=== PATIENT | female | born 1985 | race Caucasian/White ===

== ENCOUNTER 2016-12-27 06:40 | Inpatient (IN) | payer OTHER ==
[2016-12-27 08:03] VITALS: BMI 35.0
[2016-12-27 08:19] LABS: BASOPHIL 0.6 % (0-2.0); EOSINOPHIL 1.2 % (0-4.5); MCHC 33.5 g/dl (32.0-36.0); MEAN CELL VOLUME 92.4 fl (80-96); MEAN PLT VOLUME 9.2 fl (7.5-11.1); NEUTROPHILS 72.5 % (42.8-82.8); PLATELET COUNT 166 K/MM3 (134-434); RDW 14.6 % (11.6-15.6); WHITE BLOOD COUNT 11.3 K/mm3 (4.0-10.0)
[2016-12-27 08:31] LABS: INR 1.04 (0.82-1.09); PROTHROMBIN TIME (PATIENT) 11.4 SEC (9.98-11.88)
[2016-12-27 08:33] LABS: ACTIVATED PTT 26.8 SECONDS (26.9-34.4)
[2016-12-27 08:47] LABS: CALCIUM 8.7 mg/dL (8.5-10.1); COCKROFT - GAULT 323.8585; CREATININE 0.4 mg/dL (0.55-1.02)
[2016-12-27] MEDS ORDERED: PROMETHAZINE HCL 25 MG/1 ML VIAL IVPUSH PRN (09:45)
[2016-12-27] MEDS ORDERED: BUTORPHANOL TARTRATE 1 MG/ML VIAL IVPB PRN (09:45)
[2016-12-27] MEDS ORDERED: DEXTROSE 5%-LACTATED RINGERS 1,000 ML IV SCH (09:45)
[2016-12-27] MEDS ORDERED: SODIUM PHOSPHATE/NA BIPHOS 133 ML ENEMA PR ONE (09:48)
[2016-12-27] MEDS ORDERED: DINOPROSTONE 10 MG VAGINAL SUPPOSITORY VG ONE (10:00)
--- NOTE | 2016-12-27 10:32 | HP ---
Past Medical History - Primary Care Physician PCP:: Mela Woody - Admission Chief Complaint: 31 yrs , 40.5/7 weeks by sono , 41 wks by dates admitted for induction of labor History of Present Illness: pnc at [address] [place] [address] . Wt gain 44lbs work up : O neg, ( Rhogam taken AP on 10/02/16) , Hbsag neg, Rpr nr, , Rubella pos, Quantiferon neg, Hiv neg, Gbs neg pngt 139 serial sono done by [facility] for growth Genetic counselling was done. NT screen neg, Modified sequential screen neg Last sono done on 12/23/16 40.1 weeks, angel 11.7cm, efw 7'10" History Source: Patient, Medical Record Limitations to Obtaining History: No Limitations - Past Medical History ACCESS DIRECTOR: No: Seizure Cardiovascular: No: HTN Pulmonary: No: Asthma Gastrointestinal: No: Gastritis Renal/: No: UTI Reproductive: Yes: Other (pap 05/08/16 NILM) ...: 7 ...Para: 2 (2 01/30/05 9'9", baby 9'2",at [facility] h/o Induction of labor for postdates both times ) ...Term: 2 ...: 0 ...Spon : 4 (last ab 2013 ) ...Induced : 0 ...Multiple Gestation: 0 ...LMP: 03/15/16 ... Weeks Gestation by Dates: 41.0 ...EDC by Dates: 12/20/16 ...EDC by Sono: 12/22/16 (40.5/7) Infectious Disease: No: AIDS, HIV, STD's, Tuberculosis Psych: Yes: Panic (meds stopped 1 year ago) Endocrine: No: Diabetes Mellitus, Hypothyroidism - Past Surgical History Past Surgical History: Yes: None Hx Myomectomy: No Hx Transabdominal Cerclage: No - Smoking History Smoking history: Former smoker Have you smoked in the past 12 months: No - Alcohol/Substance Use Hx Alcohol Use: No History of Substance Use: reports: None Home Medications - Allergies Allergies/Adverse Reactions: Allergies Allergy/AdvReac Type Severity Reaction Status Date / Time No Known Allergies Allergy Verified 12/27/16 07:39 - Home Medications Home Medications: Ambulatory Orders Vit/Iron Fumarate/FA [ Tablet] 1 each PO DAILY 12/27/16 Physical Exam - Maternity Vital Signs: Vital Signs Temperature 97.7 F 12/27/16 10:00 Pulse Rate 78 12/27/16 10:00 Respiratory Rate 20 12/27/16 10:00 Blood Pressure 122/68 12/27/16 10:00 O2 Sat by Pulse Oximetry (%) Selected Entries 12/27/16 07:51 Temperature 97.5 F L Pulse Rate 91 H Blood Pressure 126/72 Weight 224 lb Constitutional: Yes: Well Nourished, No Distress Eyes: Yes: WNL HENT: Yes: WNL, Normocephalic Neck: Yes: WNL Cardiovascular: Yes: WNL, Regular Rate and Rhythm Lungs: Clear to auscultation Breast(s): Yes: WNL - Abdominal Exam/OB Fundal Height: 40 Number of Fetuses: Single Presentation: Vertex Contractions: Yes Regularity: Irregular Intensity: Unaware Monitor Mode: External Heart Rate (range): 150 Heart Rate [facility] Category: I Accelerations: Uniform Decelerations: None - Vaginal Exam/OB Vaginal Bleediing: No Speculum Exam: No Dilatation (cm): 1-2 Effacement (%): 40 Amniotic Membrane Status: Intact Presentation: Vertex/Position Station: -3 - Physical Exam Musculoskeletal: Yes: WNL Extremities: Yes: WNL. No: Calf Tenderness Edema: Yes Edema: LLE: 1+, RLE: 1+ Integumentary: Yes: Tattoos Deep Tendon Reflex Grade: Normal +2 ...Motor Strength: WNL Psychiatric: Yes: WNL, Alert, Oriented - Labs Lab Results: CBC, BMP 12/27/16 08:10 12/27/16 08:10 Laboratory Tests 12/27/16 12/27/16 12/27/16 08:10 08:10 08:10 INR 1.04 PTT (Actin FS) 26.8 L RPR Titer Nonreactive Blood Type O NEGATIVE Antibody Screen Negative Problem List - Problems (1) Post-term , 40-42 weeks of gestation Code(s): O48.0 - POST-TERM (2) Elective induction of labor planned Code(s): DYN2315 - Assessment/Plan 31 yrs , 41 weeks by dates, 40.5/7 weeks by sono admitted for induction of labor .GBS neg . Plan cervidil insertion done at 10.00am trial vaginal delivery
[2016-12-27] MEDS ORDERED: BUTORPHANOL TARTRATE 1 MG/ML VIAL IVPUSH PRN (18:06)
--- NOTE | 2016-12-27 18:30 | PN ---
Progress Note, Labor Vaginal Exam #1 Labor Exam Date: 12/27/16 Labor Exam Time: 16:45 Heart Rate (range): 140 Dilatation: 3-4 Effacement (%): 60 Amniotic Membrane Status: Intact Presentation: Vertex/Position Station: -2 Remarks: uc 2-3 min fhr cat-1 Vaginal Exam #2 Labor Exam Date: 12/27/16 Labor Exam Time: 18:00 Heart Rate (range): 140 Dilatation: 8 Effacement (%): 80 Amniotic Membrane Status: Ruptured (AROM clear, Cervidil removed) Presentation: Vertex/Position Station: -1 Remarks: fhr cat-1 uc q 2min 18.05 fully dilated, vx +2 , pt pushing 18.10
[2016-12-27] MEDS ORDERED: BENZOCAINE 28 GM HEMORRHOIDAL OINTMENT TP PRN (18:35)
[2016-12-27] MEDS ORDERED: BISACODYL 10 MG SUPP.RECT RC PRN (18:35)
[2016-12-27] MEDS ORDERED: BENZOCAINE 20% 57 GM BOTTLE TP PRN (18:35)
[2016-12-27] MEDS ORDERED: WITCH HAZEL 50% (TUCKS) 40 PAD/JAR PAD TP PRN (18:35)
[2016-12-27] MEDS ORDERED: METHYLERGONOVINE MALEATE 0.2 MG/1 ML AMP IM PRN (18:35)
[2016-12-27] MEDS ORDERED: oxyCODONE HCL 5 MG TABLET PO PRN (18:35)
--- NOTE | 2016-12-27 18:44 | PN ---
Delivery - Delivery Vaginal Delivery: No Problems, Spontaneous (cord around neck x1 clampe cut before delivery of anterior shoulder) Type of Anesthesia: None Episiotomy/Laceration: None EBL (cc): 250 Delivery, Single - Stages of Labor Date 1st Stage Initiatied: 12/27/16 Time 1st Stage Initiated: 13:00 Date 2nd Stage Initiated: 12/27/16 Time 2nd Stage Initiated: 18:05 Date of Delivery: 12/27/16 Time of Delivery: 18:10 Time Placenta Delivered: 18:20 Placenta: Yes: Spontaneous, Uterine Exploration - Condition of Infant Digital Marketing Officer/Driver Messenger Present: No Gender: Male Weight: 8 lb 5 oz Position: Left, OA Total Hours ROM (Hrs/Mins): 0/10 - 1 Minute Total Score: 9 5 Minutes Total Score: 9 - Feeding Plan Initial Plan: Elected not to breastfeed exclusively throughout hospitalization Remarks - Remarks Remarks: 31 yrs , 40.5/7 weeks by sono & 41 weeks by dates, admitted for induction of labor with cervidil on 12/27/16 . gbs neg pnc at [address] [place] [address] . Intrapartum course was uneventful
[2016-12-27] MEDS ORDERED: D5W-LR W/ 20 UNITS OXYTOCIN 1,000 ML IV SCH (18:45)
[2016-12-28] MEDS: IBUPROFEN 600 MG TABLET (FP) PO PRN ×4 (02:29→20:53)
[2016-12-28] MEDS: ACETAMINOPHEN 325 MG TABLET (FP) PO PRN ×4 (02:30→20:52)
[2016-12-28 08:04] LABS: BASOPHIL 0.4 % (0-2.0); EOSINOPHIL 0.5 % (0-4.5); MCH 31.4 pg (25.7-33.7); MCHC 33.9 g/dl (32.0-36.0); MEAN CELL VOLUME 92.6 fl (80-96); MEAN PLT VOLUME 9.6 fl (7.5-11.1); NEUTROPHILS 79.7 % (42.8-82.8); PLATELET COUNT 172 K/MM3 (134-434); RDW 14.5 % (11.6-15.6); WHITE BLOOD COUNT 17.6 K/mm3 (4.0-10.0)
--- NOTE | 2016-12-28 08:10 | PN ---
Post Progress Note - Subjective Subjective: asymptomatic Post Day: 1 Type of Delivery: Vital Signs: Vital Signs Temperature 98.7 F 12/28/16 05:57 Pulse Rate 81 12/28/16 05:57 Respiratory Rate 20 12/28/16 05:57 Blood Pressure 120/50 12/28/16 05:57 O2 Sat by Pulse Oximetry (%) 100 12/27/16 19:00 Breast Exam: Yes: Soft. No: Engorged Uterus: Yes: Fundus Firm, Fundus below umbilicus, Non-tender Lochia: Yes: Rubra Lochia, amount: Moderate Extremities: Yes: Calves non-tender Perineum: Yes: Intact Activity: Ambulating - Labs Labs: CBC WBC 17.6 K/mm3 (4.0-10.0) H D 12/28/16 07:00 RBC 3.72 M/mm3 (3.60-5.2) 12/28/16 07:00 Hgb 11.7 GM/dL (10.7-15.3) 12/28/16 07:00 Hct 34.5 % (32.4-45.2) 12/28/16 07:00 MCV 92.6 fl (80-96) 12/28/16 07:00 MCHC 33.9 g/dl (32.0-36.0) 12/28/16 07:00 RDW 14.5 % (11.6-15.6) 12/28/16 07:00 Plt Count 172 K/MM3 (134-434) 12/28/16 07:00 MPV 9.6 fl (7.5-11.1) 12/28/16 07:00 Neutrophils % 79.7 % (42.8-82.8) 12/28/16 07:00 Lymphocytes % 12.9 % (8-40) D 12/28/16 07:00 Monocytes % 6.5 % (3.8-10.2) 12/28/16 07:00 Eosinophils % 0.5 % (0-4.5) 12/28/16 07:00 Basophils % 0.4 % (0-2.0) 12/28/16 07:00 Problem List - Problems (1) Post-term , 40-42 weeks of gestation Code(s): O48.0 - POST-TERM (2) Elective induction of labor planned Code(s): LHO8046 - Assessment/Plan stable plan ct pp care
[2016-12-28] MEDS: FERROUS SO4 325 MG TABLET (FP) PO SCH ×2 (08:17→17:30)
[2016-12-28] MEDS: PRENATAL VITAMINS W/ FOLIC ACID TABLET (FP) PO SCH (09:31)
[2016-12-28] MEDS ORDERED: SENNOSIDES/DOCUSATE COMBO (SENNA PLUS) TABLET (UD) PO PRN (22:00)
[2016-12-29] MEDS: ACETAMINOPHEN 325 MG TABLET (FP) PO PRN ×3 (01:39→10:32)
[2016-12-29] MEDS: IBUPROFEN 600 MG TABLET (FP) PO PRN ×3 (01:40→10:33)
[2016-12-29] MEDS: FERROUS SO4 325 MG TABLET (FP) PO SCH (08:02)
[2016-12-29 08:16] VITALS: BP 128/65; PULSE 73; TEMP 97.5
[2016-12-29] MEDS: PRENATAL VITAMINS W/ FOLIC ACID TABLET (FP) PO SCH (09:22)
--- NOTE | 2016-12-29 09:38 | DS ---
Physical Exam-[employer] PRES[employer] Vital Signs: Vital Signs Temperature 97.5 F L 12/29/16 08:14 Pulse Rate 73 12/29/16 08:14 Respiratory Rate 20 12/29/16 08:14 Blood Pressure 128/65 12/29/16 08:14 O2 Sat by Pulse Oximetry (%) 100 12/27/16 19:00 Constitutional: Yes: Well Nourished Eyes: Yes: WNL HENT: Yes: WNL, Normocephalic Neck: Yes: WNL Cardiovascular: Yes: WNL, Regular Rate and Rhythm Respiratory: Yes: WNL Gastrointestinal: Yes: WNL ...Rectal Exam: Yes: WNL Renal/: Yes: WNL ....Post : Yes: Uterus firm, Uterus non-tender, Moderate lochia rubra ( perineum intact) Breast(s): Yes: WNL (not BF) Musculoskeletal: Yes: WNL Extremities: Yes: WNL. No: Calf Tenderness Edema: Yes Edema: LLE: Trace, RLE: Trace Integumentary: Yes: Tattoos Neurological: Yes: WNL, Alert, Oriented ...Motor Strength: WNL Psychiatric: Yes: WNL, Alert, Oriented Labs: CBC, BMP 12/28/16 07:00 12/27/16 08:10 Delivery - Delivery Vaginal Delivery: No Problems, Spontaneous (cord around neck x1 clampe cut before delivery of anterior shoulder) Type of Anesthesia: None Episiotomy/Laceration: None EBL (cc): 250 Delivery, Single - Stages of Labor Date 1st Stage Initiatied: 12/27/16 Time 1st Stage Initiated: 13:00 Date 2nd Stage Initiated: 12/27/16 Time 2nd Stage Initiated: 18:05 Date of Delivery: 12/27/16 Time of Delivery: 18:10 Time Placenta Delivered: 18:20 Placenta: Yes: Spontaneous, Uterine Exploration - Condition of Infant Show Worker/Systems Engineering Manager Present: No Infant Gender: Male Weight: 8 lb 5 oz Position: Left, OA Total Hours ROM (Hrs/Mins): 0/10 - 1 Minute Total Score: 9 5 Minutes Total Score: 9 - [place] Feeding Plan Initial Plan: Elected not to breastfeed exclusively throughout hospitalization Remarks - Remarks Remarks: 31 yrs , 40.5/7 weeks by sono & 41 weeks by dates, admitted for induction of labor with cervidil on 12/27/16 . gbs neg pnc at [address] [place] [address] . Intrapartum course was uneventful Post course uneventful discharge 12/29/16 Discharge Summary Reason For Visit: LABOR ADMIT Current Active Problems Elective induction of labor planned (Acute) Post-term , 40-42 weeks of gestation (Acute) - Home Medications Comprehensive Discharge Medication List: Ambulatory Orders Vit/Iron Fumarate/FA [ Tablet] 1 each PO DAILY 12/27/16
== END 2016-12-29 11:00 | disposition home or self-care (01) | DRG 560 ==
LOC: JLDR 06:40 → J3W 20:00
PROVIDERS: ADMIT Obstetrics & Gynecology; ATTEND Obstetrics & Gynecology
PROC: 10E0XZZ Delivery of Products of Conception, External Approach (ICD-10-PCS; principal; 2016-12-27)
PROC: 3E0P7GC Introduction of Other Therapeutic Substance into Female Reproductive, Via Natural or Artificial Opening (ICD-10-PCS; 2016-12-27)
DX: O48.0 Post-term pregnancy (principal); Z3A.40 40 weeks gestation of pregnancy; Z37.0 Single live birth
CPT/HCPCS: 36415; 59409; 80048; 85025; 85461; 85610; 85730; 86593; 86850; 86900; 86901; 86999